=== PATIENT | male | born 1985 | race Caucasian/White ===

== ENCOUNTER 2022-09-07 15:47 | Outpatient (CLI) | payer BC ==
[2022-09-07 16:29] LABS: #Eosinphils 0.1 10x3/uL (0.0-0.5); #Monocytes 0.8 10x3/uL (0.0-1.1); #Neutrophils 3.8 10x3/uL (1.5-8.4); %Basophils 0.4 % (0.0-2.0); %Eosinophils 1.6 % (0.0-6.0); %Lymphocytes 36.4 % (18.0-47.0); %Monocytes 10.4 % (0.0-10.0); %Neutrophils 50.8 % (40.0-75.0); Mean Corpuscular HGB CONC 33.7 g/dL (32.0-36.0); Mean Corpuscular Hemoglobin 29.7 pg (27.0-33.0); Mean Corpuscular Volume 87.9 fl (81.2-95.1); Mean Platelet Volume 9.3 fl (7.4-10.4); Platelet Count 265 10x3/uL (150-450); RBC Distribution Width 12.1 % (11.5-14.5); Red Blood Cell (RBC) Count 4.72 10x6/uL (4.32-5.72); White Blood Cell (WBC) Count 7.5 10x3/uL (3.5-10.5)
== END 2022-09-07 15:48 | disposition home or self-care (01) ==
LOC: LABBT 15:47
PROVIDERS: ATTEND Internal Medicine
DX: Z01.812 Encounter for preprocedural laboratory examination (principal); S62.604A Fracture of unspecified phalanx of right ring finger, initial encounter for closed fracture
CPT/HCPCS: 85025

== ENCOUNTER 2022-09-09 05:38 | Day surgery (SDC) | payer BC ==
[2022-09-07 15:06] VITALS: BMI 21.9
[2022-09-09] MEDS ORDERED: Bacitracin Zinc Ointment 30 gm TUBE ONE (06:17)
[2022-09-09] MEDS ORDERED: Neomycin-Polymyxin 1 ML AMP ONE (06:17)
[2022-09-09] MEDS ORDERED: Bupivacaine PF 0.5% 30 ML VIAL ONE (06:17)
[2022-09-09] MEDS ORDERED: fentaNYL PF 100 MCG/2 ML SYRINGE ONE (06:20)
[2022-09-09] MEDS ORDERED: Sodium Chloride 0.9% 100 ML ONE (07:01)
[2022-09-09] MEDS ORDERED: CEFAZOLIN 2 GM VIAL ONE (07:01)
[2022-09-09] MEDS ORDERED: Midazolam HCl 2 mg/2 ml Vial ONE (07:06)
[2022-09-09] MEDS ORDERED: Lidocaine 1% PF 5 ML VIAL ONE (07:21)
[2022-09-09] MEDS ORDERED: PROPOFOL 200 MG/20 ML VIAL ONE (07:21)
[2022-09-09] MEDS ORDERED: Ondansetron PF 4 MG/2 ML Vial ONE ×2 (07:21→09:19)
[2022-09-09] MEDS ORDERED: Ketorolac Tromethamine 30 MG/ML VIAL ONE ×2 (07:21→12:25)
[2022-09-09] MEDS ORDERED: Dexamethasone 20 MG/5 ML VIAL ONE (07:21)
[2022-09-09] MEDS ORDERED: Fentanyl 100 MCG/2 ML VIAL ONE ×2 (08:54→09:41)
[2022-09-09] MEDS ORDERED: Promethazine HCl 25 MG/ML VIAL ONE (10:57)
== END 2022-09-09 12:32 | disposition home or self-care (01) ==
LOC: SDC 05:38
PROVIDERS: ATTEND Orthopaedic Surgery Hand Surgery
PROC: 0RNW0ZZ Release Right Finger Phalangeal Joint, Open Approach (ICD-10-PCS; principal; 2022-09-09)
PROC: 0LQ70ZZ Repair Right Hand Tendon, Open Approach (ICD-10-PCS; principal; 2022-09-09)
DX: M20.021 Boutonniere deformity of right finger(s) (principal); M24.541 Contracture, right hand; F17.210 Nicotine dependence, cigarettes, uncomplicated
CPT/HCPCS: C1894; J1100; J1885; J2250; J2405; J2550; J2704; J3010; J3490; S0020